=== PATIENT | female | born 1940 | race Hispanic/Latino ===

== ENCOUNTER 2017-12-13 23:09 | Emergency (ER) | payer MEDICARE ==
[~2017-12-13 23:09] MED LIST: ALPR0.5T8 PO; CARB25DR OP; CIPR-295 PO; DESI25TA16 PO; DILT120C57 PO; GENTEAL PM OIN3.5 GM OP; LISI-613 PO; MONT10TA24 PO; OMEP40CA37 PO
[2017-12-13 23:34] LABS: APPEARANCE,URINE Turbid (CLEAR); BILIRUBIN,URINE Negative (NEGATIVE); COLOR,URINE Yellow (YELLOW); GLUCOSE, URINE (UA) Negative (NEGATIVE); KETONES,URINE Negative (NEGATIVE); LEUKOCYTE ESTERASE ,URINE Large (NEGATIVE); NITRATE,URINE Positive (NEGATIVE); OCCULT BLOOD,URINE Large (NEGATIVE); PH,URINE 5.5 (5.0-8.0); PROTEIN,URINE 300 (NEGATIVE)
[2017-12-13] MEDS ORDERED: CEFTRIAXONE SODIUM 1 GM ONE (23:51)
[2017-12-13] MEDS ORDERED: PHENAZOPYRIDINE HCL 200 MG TABLET ONE (23:52)
[2017-12-13] MEDS ORDERED: SODIUM CHLORIDE 0.9% 50 ML IV ONE (23:52)
[2017-12-13 23:53] LABS: BASOPHILS % (AUTO) 0.5 % (0.0-5.0); EOSINOPHILS % (AUTO) 1.3 % (0.0-8.0); HEMATOCRIT 40.9 % (36-48); MEAN CORPUSCULAR HEMOGLOBIN 29.6 pg (27.0-33.0); MEAN CORPUSCULAR HGB CONC 33.1 g/dL (32.0-36.0); MEAN CORPUSCULAR VOLUME 89.6 fL (79-99); NEUTROPHILS % (AUTO) 70.2 % (40.0-77.0); PLATELET COUNT (AUTO) 191 K/uL (130-400); RED BLOOD CELL COUNT(AUTO) 4.57 MIL/uL (4.00-5.50); RED CELL DISTRIBUTION WIDTH 15.2 % (11.0-15.5); WHITE BLOOD COUNT (AUTO) 13.1 K/uL (4.8-10.8)
[2017-12-14 00:01] LABS: BACTERIA,URINE Many /HPF (None Seen); WBC,URINE TNTC /HPF (0-1)
[2017-12-14 00:45] LABS: CREATININE 0.8 mg/dL (0.5-1.5); POTASSIUM 3.9 mmol/L (3.5-5.1)
== END 2017-12-14 01:27 | disposition home or self-care (01) ==
LOC: EDH 23:09
DX: N30.00 Acute cystitis without hematuria (principal); I10 Essential (primary) hypertension; Z90.710 Acquired absence of both cervix and uterus; Z90.49 Acquired absence of other specified parts of digestive tract
CPT/HCPCS: 36415; 80048; 81001; 85025; 87088; 87186; 96374; 99284; J0696

== ENCOUNTER 2017-12-16 17:14 | Emergency (ER) | payer MEDICARE ==
[2017-12-16 18:25] LABS: BASOPHILS % (AUTO) 0.8 % (0.0-5.0); EOSINOPHILS % (AUTO) 1.7 % (0.0-8.0); HEMATOCRIT 36.1 % (36-48); LYMPHOCYTES % (AUTO) 18.9 % (21.0-51.0); MEAN CORPUSCULAR HEMOGLOBIN 30.5 pg (27.0-33.0); MEAN CORPUSCULAR VOLUME 89.7 fL (79-99); MONOCYTES % (AUTO) 11.9 % (3.0-13.0); NEUTROPHILS % (AUTO) 66.7 % (40.0-77.0); PLATELET COUNT (AUTO) 183 K/uL (130-400); RED BLOOD CELL COUNT(AUTO) 4.03 MIL/uL (4.00-5.50); RED CELL DISTRIBUTION WIDTH 14.9 % (11.0-15.5); WHITE BLOOD COUNT (AUTO) 9.4 K/uL (4.8-10.8)
[2017-12-16 18:26] LABS: APPEARANCE,URINE Cloudy (CLEAR); BILIRUBIN,URINE Negative (NEGATIVE); COLOR,URINE Dark Yellow (YELLOW); GLUCOSE, URINE (UA) Negative (NEGATIVE); KETONES,URINE Negative (NEGATIVE); LEUKOCYTE ESTERASE ,URINE Large (NEGATIVE); NITRATE,URINE Negative (NEGATIVE); OCCULT BLOOD,URINE Small (NEGATIVE); PROTEIN,URINE Negative (NEGATIVE)
[2017-12-16 18:33] LABS: CREATININE 0.7 mg/dL (0.5-1.5); POTASSIUM 3.7 mmol/L (3.5-5.1)
[2017-12-16 19:54] LABS: BACTERIA,URINE Few /HPF (None Seen); WBC,URINE 26-50 /HPF (0-1)
[2017-12-16 19:55] LABS: SQUAMOUS EPITHELIAL CELL,UR Few /HPF (0-2)
== END 2017-12-16 19:00 | disposition home or self-care (01) ==
LOC: EDH 17:14
DX: N39.0 Urinary tract infection, site not specified (principal); I10 Essential (primary) hypertension; F41.9 Anxiety disorder, unspecified
CPT/HCPCS: 36415; 80048; 81001; 85025; 87088; 87186

== ENCOUNTER → 2018-08-05 | Outpatient (CLI) | payer MEDICARE ==
[~2018-08-05] MED LIST changes: +AMLO5TAB9 PO; +BUDE10.2 IH; -CARB25DR OP; -CIPR-295 PO; +CITA-106 PO; +CLON0.1T PO; -DESI25TA16 PO; +DICY20TA11 PO; -DILT120C57 PO; -GENTEAL PM OIN3.5 GM OP; +IOHEXOL 350 MG/ML 100ML INFUS..BTL IV ONE; +METO25TA6 PO; -MONT10TA24 PO; -OMEP40CA37 PO
== END | disposition home or self-care (01) ==
LOC: RAH 09:02
PROVIDERS: ATTEND Internal Medicine Gastroenterology
DX: K57.90 Diverticulosis of intestine, part unspecified, without perforation or abscess without bleeding (principal); M41.86 Other forms of scoliosis, lumbar region; I70.90 Unspecified atherosclerosis; M47.815 Spondylosis without myelopathy or radiculopathy, thoracolumbar region; I51.7 Cardiomegaly
CPT/HCPCS: 74178; Q9967

== ENCOUNTER → 2018-11-12 | Outpatient (CLI) | payer MEDICARE ==
[~2018-11-12] VITALS: Ht 160 cm; Wt 73.5 kg
[~2018-11-12] MED LIST changes: -IOHEXOL 350 MG/ML 100ML INFUS..BTL IV ONE; +REGADENOSON 0.4 MG/5 ML PF SYG IVP SCH
== END | disposition home or self-care (01) ==
LOC: SHCH 08:05
PROVIDERS: ATTEND Internal Medicine Cardiovascular Disease
DX: I20.9 Angina pectoris, unspecified (principal)
CPT/HCPCS: 78452; 93017; 96374; A9500 ×2; J2785

== ENCOUNTER 2018-12-28 06:50 | Day surgery (SDC) | payer MEDICARE ==
[2018-12-24 11:45] VITALS: BP 135/60
[2018-12-24 12:11] LABS: BASOPHILS % (AUTO) 1.4 % (0.0-5.0); EOSINOPHILS % (AUTO) 3.1 % (0.0-8.0); HEMATOCRIT 41.8 % (36-48); LYMPHOCYTES % (AUTO) 32.2 % (21.0-51.0); MEAN CORPUSCULAR HEMOGLOBIN 31.2 pg (27.0-33.0); MEAN CORPUSCULAR HGB CONC 33.6 g/dL (32.0-36.0); MEAN CORPUSCULAR VOLUME 92.9 fL (79-99); MONOCYTES % (AUTO) 9.2 % (3.0-13.0); NEUTROPHILS % (AUTO) 54.1 % (40.0-77.0); PLATELET COUNT (AUTO) 166 K/uL (130-400); RED CELL DISTRIBUTION WIDTH 14.5 % (11.0-15.5); WHITE BLOOD COUNT (AUTO) 5.5 K/uL (4.8-10.8)
[2018-12-24 12:23] LABS: CREATININE 0.7 mg/dL (0.5-1.5); POTASSIUM 4.2 mmol/L (3.5-5.1)
[2018-12-24 12:26] LABS: INR 0.97 (0.85-1.15); PARTIAL THROMBOPLASTIN TIME 28.3 SEC (26.3-35.5); PROTHROMBIN TIME 10.2 SEC (9.6-11.6)
[2018-12-25 15:00] LABS: APPEARANCE,URINE Clear (CLEAR); BILIRUBIN,URINE Negative (NEGATIVE); COLOR,URINE Yellow (YELLOW); GLUCOSE, URINE (UA) Negative (NEGATIVE); KETONES,URINE Negative (NEGATIVE); LEUKOCYTE ESTERASE ,URINE Small (NEGATIVE); NITRATE,URINE Negative (NEGATIVE); OCCULT BLOOD,URINE Negative (NEGATIVE); PH,URINE 5.5 (5.0-8.0); PROTEIN,URINE Negative (NEGATIVE); UROBILINOGEN,URINE 0.2 mg/dL (0.2-1.0)
[2018-12-25 15:10] LABS: BACTERIA,URINE Few /HPF (None Seen); RBC,URINE 0-1 /HPF (0-1); SQUAMOUS EPITHELIAL CELL,UR Rare /HPF (0-2)
[2018-12-28] VITALS (13 sets, daily range): BP systolic 106–168; BP diastolic 50–75
[~2018-12-28] VITALS: Ht 157.5 cm; Wt 74.8 kg
[~2018-12-28 06:50] MED LIST changes: -BUDE10.2 IH; -CITA-106 PO; -DICY20TA11 PO; +DIPH1TAB PO; +FAMO40TA7 PO; +FLUT1BLS3 IH; +FURO20TA4 PO; +GENTEAL GEL OU; +GENTEAL TEARS OU; -LISI-613 PO; +LISI30TA4 PO; -METO25TA6 PO; +ONDA4TAB9 PO; -REGADENOSON 0.4 MG/5 ML PF SYG IVP SCH
[2018-12-28] MEDS ORDERED: SODIUM CHLORIDE 0.9% 1000ML 1,000 ML IV ONE (08:54)
[2018-12-28] MEDS ORDERED: IOHEXOL-350 50ML VIAL IV ONE (12:28)
[2018-12-28] MEDS ORDERED: NITROGLYCERIN 5 MG/ML 10 ML VIAL IV ONE (12:28)
[2018-12-28] MEDS ORDERED: IOHEXOL 350 MG/ML 100ML INFUS..BTL IV ONE (12:28)
[2018-12-28] MEDS ORDERED: LIDOCAINE HCL 2% 20ML ONE (12:28)
--- NOTE | 2018-12-28 13:20 | NUR ---
PATIENT TRANSFERRED PATIENT TAKEN TO HIDE PASTER VIA BED AND SON STAYED IN ROOM TO WAIT FOR PATIENT.
[2018-12-28] MEDS ORDERED: MIDAZOLAM HCL 1 MG/ML 2ML VIAL ONE (14:08)
[2018-12-28] MEDS ORDERED: SODIUM CHLORIDE 0.9% 1000ML 1,000 ML IV SCH (14:48)
[2018-12-28] MEDS ORDERED: HYDRALAZINE HCL 20 MG/ML VIAL ONE (15:08)
--- NOTE | 2018-12-28 17:00 | NUR ---
DIET PT TOLERATED DIET WELL, DAUGHTER ASSISTED PT.
--- NOTE | 2018-12-28 19:08 | NUR ---
DISCHARGE PT DISCHARGED VIA WHEELCHAIR WITH DAUGHTER. PT STABLE. NO COMPLAINTS MADE. CATH SITE TO RIGHT GROIN REMAINS SOFT, DRESSING DRY AND INTACT, NO OOZING NO HEMATOMA NOTED. DISCHARGE INSTRUCTIONS GIVEN TO DAUGHTER, ALSO DEMONSTRATED TO DAUGHTER ON HOW TO MONITOR CATH SITE FOR BLEEDING, HEMATOMA. VERBALIZED UNDERSTANDING. VOIDED PRIOR TO DISCHARGE.
== END 2018-12-28 19:08 | disposition home or self-care (01) ==
LOC: DAH 06:50
PROVIDERS: ATTEND Internal Medicine Cardiovascular Disease
DX: I25.118 Atherosclerotic heart disease of native coronary artery with other forms of angina pectoris (principal); I49.01 Ventricular fibrillation; I48.0 Paroxysmal atrial fibrillation; K21.9 Gastro-esophageal reflux disease without esophagitis; I10 Essential (primary) hypertension; E78.5 Hyperlipidemia, unspecified; J45.909 Unspecified asthma, uncomplicated; Z79.899 Other long term (current) drug therapy; Z79.01 Long term (current) use of anticoagulants; Z90.710 Acquired absence of both cervix and uterus; Z82.49 Family history of ischemic heart disease and other diseases of the circulatory system; Z82.3 Family history of stroke
CPT/HCPCS: 36415; 71045; 80048; 81001; 85025; 85610; 85730; 93005; 93458; A4606; C1760; C1894; J0360; J1644; J2250; J3490 ×2; J7030; Q9965 ×2; Q9967 ×2; 99156; 99157

== ENCOUNTER → 2019-08-18 | Outpatient (CLI) | payer MEDICARE ==
[~2019-08-18] MED LIST changes: +ONDA-104 PO; -ONDA4TAB9 PO
== END | disposition home or self-care (01) ==
LOC: RAH 10:16
PROVIDERS: ATTEND Internal Medicine
DX: Z12.31 Encounter for screening mammogram for malignant neoplasm of breast (principal)
CPT/HCPCS: 77067

== ENCOUNTER → 2020-08-31 | Outpatient (CLI) | payer MEDICARE ==
[~2020-08-31] MED LIST changes: +AMLO-257 PO; -AMLO5TAB9 PO
== END | disposition home or self-care (01) ==
LOC: RAH 15:05
PROVIDERS: ATTEND Internal Medicine
DX: G31.9 Degenerative disease of nervous system, unspecified (principal)
CPT/HCPCS: 70551

== ENCOUNTER → 2023-04-22 | Outpatient (CLI) | payer MEDICARE ==
[~2023-04-22] MED LIST changes: +ASPI-1197 PO; +CARB-38 PO; +CETI10TA57 PO; +DESI25TA16 PO; +DILT120T PO; +ESCI-8 PO; +IBUP-2076 PO; +MELA1TAB17 PO; +PANT40TA54 PO; +SPIR25TA6 PO
== END | disposition home or self-care (01) ==
LOC: RAH 12:31
PROVIDERS: ATTEND Internal Medicine
DX: M19.032 Primary osteoarthritis, left wrist (principal); M25.532 Pain in left wrist; G93.31 Postviral fatigue syndrome; J45.909 Unspecified asthma, uncomplicated; M47.815 Spondylosis without myelopathy or radiculopathy, thoracolumbar region; I25.10 Atherosclerotic heart disease of native coronary artery without angina pectoris; Z86.16 Personal history of COVID-19
CPT/HCPCS: 71046; 73100

== ENCOUNTER → 2024-12-02 | Outpatient (CLI) | payer MEDICARE, MEDICAID ==
[~2024-12-02] MED LIST changes: +DESI25TA PO; -DESI25TA16 PO
--- NOTE | 2024-12-02 12:19 | HMCIMG ---
US SOFT TISSUE NECK REASON: LOCALIZED ENLARGED LYMPH NODES. COMPARISON: None TECHNIQUE: Soft tissue left neck ultrasound study was performed. FINDINGS: At the region of interest, there is cervical lymph node measuring 8 x 4 x 7 mm. IMPRESSION: 1. Normal-appearing left cervical lymph node measuring 8 x 4 x 7 mm
== END | disposition home or self-care (01) ==
LOC: RAH 10:20
PROVIDERS: ATTEND Internal Medicine
DX: R59.0 Localized enlarged lymph nodes (principal)
CPT/HCPCS: 76536

== ENCOUNTER 2025-02-03 14:58 | Observation (INO) | payer MEDICARE, MEDICAID ==
[~2025-02-03] VITALS: Ht 157.5 cm; Wt 76.6 kg
[2025-02-03 16:14] LABS: IMMATURE GRANULOCYTE ABSOLUTE 0.08 K/uL (0-1); NUCLEATED RED BLOOD CELLS 0.0 % (0.0-0.19); PLATELET COUNT (AUTO) 229 K/uL (130-400); RED BLOOD CELL COUNT(AUTO) 4.66 MIL/uL (4.00-5.50); RED CELL DISTRIBUTION WIDTH 14.8 % (11.0-15.5); WHITE BLOOD COUNT (AUTO) 14.2 K/uL (4.8-10.8)
[2025-02-03 16:47] LABS: ASPARTATE AMINOTRANSFERASE 22.0 U/L (10-37); CREATINE KINASE, TOTAL 13.0 U/L (21-232); CREATININE 1.3 mg/dL (0.5-1.0); GLOMERULAR FILTR. RATE CALC 40.0 mL/min (>90); GLUCOSE,RANDOM 86.0 mg/dL (70-105); SODIUM SERUM 137.0 mmol/L (136-145); TOTAL PROTEIN, SERUM 6.3 g/dL (6.0-8.3); UREA NITROGEN, BLOOD 27.0 mg/dL (7-18)
--- NOTE | 2025-02-03 17:02 | HMCIMG ---
CT ABD/PEL WO CON RENAL/APPY REASON: abdominal pain COMPARISON: Prior CT from 07/18/2018 is available.. FINDINGS: Lung bases are clear. There are no focal liver lesions. There are normal-appearing kidneys.. Spleen and pancreas appear unremarkable. The gallbladder not visualized suggesting is surgically absent.. Bowel loops appear unremarkable. This includes normal appearance of the appendix there are scattered diverticulosis with no evidence of diverticulitis. There is no evidence of free fluid or intraperitoneal air. There are no focal fluid collections. There are demonstrate atherosclerotic changes with calcified plaque. The retroperitoneum appear normal as do pelvic soft tissue structures. The anterior abdominal wall is intact. Osseous structures demonstrate mild rotoscoliosis of the lumbar spine with multilevel osteoarthritic changes and disc disease.. There is grade 1 anterolisthesis of L5-S1. IMPRESSION: 1. No acute process seen in CT of abdomen and pelvis without intravenous contrast. 2. Unchanged from prior study with findings as discussed above. CT was performed with one or more following dose reduction techniques: automated exposure control, adjustment of the mA and kv according to patient's size, or use of a iterative reconstruction technique.
[2025-02-03] MEDS: 0.9%NACL 1000ML 1,000 ML IV SCH ×2 (17:45→19:25)
--- NOTE | 2025-02-03 18:23 | ERN ---
ED Note History of Present Illness Stated Complaint: ABDOMINAL PAIN Chief Complaint: Weakness Time Seen by MD: 15:09 Dictation: 84-year-old female presenting to the emergency department with generalized weakness and low blood pressure patient also having abdominal pain had recent change of medication. No chest pain or shortness of breath. Allergies: Coded Allergies: No Known Drug Allergies (Verified Allergy, 09/05/12) Home Meds Active Scripts Ondansetron HCl (Ondansetron HCl) 4 Mg Tablet, 4 MG PO TIDP PRN for VOMITING, #20 TAB Prov:KASSANDRA SINGH MD 02/07/23 Ibuprofen (Ibuprofen) 400 Mg Tablet, 400 MG PO TIDP, #30 TAB Prov:KASSANDRA SINGH MD 02/07/23 Reported Medications Melatonin/Pyridoxine HCl (B6) (Melatonin 5 mg Tablet) 1 Each Tablet, 1 EACH PO HS, TAB 02/07/23 Cetirizine HCl (Cetirizine HCl) 10 Mg Tablet, 10 MG PO BID, TAB 02/07/23 Diltiazem HCl (Diltiazem HCl) 120 Mg Tablet, 240 MG PO AM, TAB 02/07/23 Pantoprazole Sodium (Pantoprazole Sodium) 40 Mg Tablet.dr, 40 MG PO DAILY, TAB 02/07/23 Escitalopram Oxalate (Escitalopram Oxalate) 10 Mg Tablet, 10 MG PO DAILY, TAB 02/07/23 Aspirin (Aspirin) 81 Mg Tab.chew, 81 MG PO DAILY, TAB.CHEW 02/07/23 Spironolactone (Spironolactone) 25 Mg Tablet, 25 MG PO AM, TAB 02/07/23 Carbidopa/Levodopa (Carbidopa-Levo 25-100 mg Odt) 1 Each Tab.rapdis, 1 EACH PO QID, TAB 02/07/23 Famotidine (Famotidine) 40 Mg Tablet, 40 MG PO DAILY, TAB 02/07/23 Desipramine HCl (Desipramine HCl) 25 Mg Tablet, 25 MG PO HS, TAB 02/07/23 [Genteal Gel] No Conflict Check, 1 STRIP OU HSPRN 12/24/18 [Genteal Tears] No Conflict Check, 1 DROP OU BID 12/24/18 Fluticasone/Umeclidin/Vilanter (Trelegy Ellipta 100-62.5-25) 1 Each Blst.w.dev, 2 EACH IH AD for SOB 12/24/18 Famotidine (Famotidine) 40 Mg Tablet, 40 MG PO BID, TAB 12/24/18 Alprazolam (Alprazolam) 0.5 Mg Tablet, 0.5 MG PO AD PRN for ANXIETY, TAB 12/24/18 Ondansetron HCl (Ondansetron HCl) 4 Mg Tablet, 4 MG PO AHD PRN for NAUSEA, TAB 12/24/18 Diphenoxylate HCl/Atropine (Lomotil Tablet) 1 Each Tablet, 5 MG PO AD PRN for DIARRHEA, TAB 12/24/18 Lisinopril (Lisinopril) 30 Mg Tablet, 30 MG PO AM, TAB 12/24/18 Furosemide (Furosemide) 20 Mg Tablet, 20 MG PO AMNOON, TAB 12/24/18 Clonidine HCl (Clonidine HCl) 0.1 Mg Tablet, 0.1 MG PO FOUR TIMES PRN for SYTOLIC OVER 180, TAB 12/24/18 Amlodipine Besylate (Amlodipine Besylate) 5 Mg Tablet, 5 MG PO DAILY, TAB 01/29/18 Past Medical History Past Medical History: Hypertension Additional Past Medical Hx: PARKINSONS Surgical History: Unknown Social History: Lives with family Review of System Dictation Constitutional: Negative for fever,chills, and weight loss Eyes: Negative for injury, pain,redness, and discharge ENT: Negative for injury,pain or swelling Cardiovascular: Negative for chest pain, palpitations, and edema Respiratory: Negative for shortness of breath, cough, and wheezing, Abdomen/GI: Per HPI : Negative for injury, bleeding and discharge MS/Extremity: Negative for injury and deformity Skin: Negative for rash, and discoloration Neuro: Per HPI Initial Vital Sign VS Vital Signs Date Time Temp Pulse Resp B/P (MAP) Pulse Ox O2 Delivery O2 Flow Rate FiO2 02/03/25 15:01 98.2 50 20 107/56 95 Room Air Physical Exam Dictation General: awake, alert, appears ill and weak Head/Face: Normocephalic, atraumatic Eyes: PERRL, EOMI, vision at baseline ENT: oral cavity clear, TMs clear, no signs of infection Neck: Trachea midline, supple, no nuchal rigidity Cardiovascular: RRR, normal S1/S2, No MRGs, no JVD Respiratory: CTAB, no respiratory distress, No rales or wheezes Abdomen: Soft, non-tender, non-distended, normal bowel sounds, no guarding or rebound. Skin: Warm, dry, normal turgor, no rash MS/Extremity: Pulses equal, no cyanosis, neurovascular intact, FROM Neuro: COAx4, GCS 15, strength 5/5, CN 2-12 intact, normal cerebellar exam, normal gait, Psych: Normal behavior, mood, and affect normal Results (Laboratory/Radiology) Laboratory/Radiology Laboratory Tests Test 02/03/25 15:11 02/03/25 16:00 Whole Blood Glucose 85 MG/DL (70-110) White Blood Count 14.2 K/uL (4.8-10.8) H Red Blood Count 4.66 MIL/uL (4.00-5.50) Hemoglobin 14.2 g/dL (12.0-16.0) Hematocrit 42.9 % (36-48) Mean Corpuscular Volume 92.1 fL (79-99) Mean Corpuscular Hemoglobin 30.5 pg (27.0-33.0) Mean Corpuscular Hemoglobin Concent 33.1 g/dL (32.0-36.0) Red Cell Distribution Width 14.8 % (11.0-15.5) Platelet Count 229 K/uL (130-400) Mean Platelet Volume 11.4 fL (7.5-10.5) H Immature Granulocyte % (Auto) 0.6 % (0-1) Neutrophils (%) (Auto) 62.2 % (40.0-77.0) Lymphocytes (%) (Auto) 24.9 % (21.0-51.0) Monocytes (%) (Auto) 10.8 % (3.0-13.0) Eosinophils (%) (Auto) 0.7 % (0.0-8.0) Basophils (%) (Auto) 0.8 % (0.0-5.0) Neutrophils # (Auto) 8.9 K/uL (1.8-7.7) H Lymphocytes # (Auto) 3.6 K/uL (1.0-4.8) Monocytes # (Auto) 1.5 K/uL (0.1-1.0) H Eosinophils # (Auto) 0.10 K/uL (0.00-0.70) Basophils # (Auto) 0.11 K/uL (0.00-0.20) Absolute Immature Granulocyte (auto 0.08 K/uL (0-1) Nucleated Red Blood Cells 0.0 % (0.0-0.19) Sodium Level 137 mmol/L (136-145) Potassium Level 4.1 mmol/L (3.5-5.1) Chloride Level 99 mmol/L (101-111) L Carbon Dioxide Level 30 mmol/L (21-32) Blood Urea Nitrogen 27 mg/dL (7-18) H Creatinine 1.3 mg/dL (0.5-1.0) H Glomerular Filtration Rate Calc 40 mL/min (>90) Random Glucose 86 mg/dL (70-105) Lactic Acid Level 1.5 mmol/L (0.8-2.5) Total Calcium 8.5 mg/dL (8.5-10.1) Total Bilirubin 0.8 mg/dL (0.2-1.0) Direct Bilirubin 0.2 mg/dL (0.0-0.3) Aspartate Amino Transf (AST/SGOT) 22 U/L (10-37) Alanine Aminotransferase (ALT/SGPT) 14 U/L (12-78) Alkaline Phosphatase 118 U/L (50-136) Total Creatine Kinase 13 U/L (21-232) #L Troponin I High Sensitivity 8 ng/L (4-50) Total Protein 6.3 g/dL (6.0-8.3) Albumin 3.2 g/dL (3.5-5.0) L Lipase 32 U/L (16-77) Labs Reviewed?: Yes EKG: (+) NSR, (+) QRS, (+) nonspecific ST T wave chg, (+) nonspecific ST T wave chg ED Course ED Course Orders Procedure Category Date Status Time Bedside Glucose CPOE 02/03/25 Transmitted Fingerstick 15:06 12 Lead Ekg Tracing- EKG 02/03/25 Logged Technical 15:29 Basic Metabolic Panel LAB 02/03/25 Complete 15: Blood Cult YOLANDE 02/03/25 In Process 15:29 Cbc With Differential LAB 02/03/25 Complete 15:29 Hepatic Function Panel LAB 02/03/25 Complete 15:29 Creatine Kinase, Total LAB 02/03/25 Complete 15:29 Lactic Acid LAB 02/03/25 Complete 15:29 Lipase LAB 02/03/25 Complete 15:29 Urinalysis Profile LAB 02/03/25 Logged 15:29 Troponin I High LAB 02/03/25 Complete Sensitivity 15:29 Ct Abd/Pel Wo Con CT 02/03/25 Resulted Renal/Appy 15:29 Ondansetron 4mg Inj PHA 02/03/25 In Process (Zofran 4mg Inj) 16:00 0.9%Nacl 1000ml (Ns PHA 02/03/25 In Process 1000ml) 16:00 Current Medications Medications (Trade) Dose Ordered Sig/[place] Route PRN Reason Start Time Stop Time Status Last Admin Dose Admin Ondansetron HCl (zoFRAN 4MG INJ) 4 mg ONCE IVP 02/03/25 16:00 02/03/25 20:00 02/03/25 17:46 Sodium Chloride 1,000 ml @ 0 mls/hr ONCE IV 02/03/25 16:00 02/03/25 20:00 02/03/25 17:45 Vital Signs Date Time Temp Pulse Resp B/P (MAP) Pulse Ox O2 Delivery O2 Flow Rate FiO2 02/03/25 15:01 98.2 50 20 107/56 95 Room Air Medical Decision Making MDM MDM: Differential diagnosis: Rationale: Tests considered and ordered secondary to shared decision making include: labs, ECG and radiology Previous outside records reviewed: Old ER visits. Risk of complication and/or morbidity or mortality of patient management: None Medications-Per medication reconciliation Need for hospitalization: Patient does meet criteria for hospitalization. Need for emergency major/minor surgery: No There are no social concerns with this patient. Prescription drug management Prescriptions will include symptomatic care Patient's prior external medical records from other ER visits were reviewed by me as indicated. Prior testing and results from previous visits were reviewed. Prior tests were taken into account with medical decision making and resource utilization, independent historian/historians were used to obtain complete medical history. I independently interpreted the test that were performed, results were reviewed by me and considered findings on radiology if ordered. Medical management and examination interpretation discussions were had by me with other qualified healthcare professionals as indicated for the patient's care. 84-year-old female with generalized weakness and borderline hypotension improved with IV fluids admitting for further care and evaluation. DX & DISP Disposition: Inpatient Departure Impression: Primary Impression: Acute abdominal pain Additional Impression: Hypotension Condition: Stable Referrals: LUCILLE MCCAIN MD (PCP) APRIL UNGER MD Feb 03, 2025 18:23
[2025-02-03] MEDS ORDERED: ROSU10TA72 PO (21:08)
[2025-02-03] MEDS ORDERED: ESCI5TAB16 PO (21:08)
[2025-02-03] MEDS ORDERED: CELE-125 PO (21:08)
[2025-02-03 21:33] LABS: APPEARANCE,URINE CLEAR (CLEAR); GLUCOSE, URINE (UA) NEGATIVE (NEGATIVE); LEUKOCYTE ESTERASE ,URINE NEGATIVE Leu/uL (NEGATIVE); NITRATE,URINE NEGATIVE (NEGATIVE); OCCULT BLOOD,URINE NEGATIVE (NEGATIVE)
[2025-02-03 21:34] LABS: ADD UA MICROSCOPIC NO
--- NOTE | 2025-02-03 23:13 | HP ---
HISTORY AND PHYSICAL NOTE DATE OF CONSULTATION: 02/03/25 REASON FOR CONSULTATION: weakness HISTORY OF PRESENT ILLNESS: 84-year-old female presenting to the emergency department with generalized weakness and low blood pressure patient also having abdominal pain had recent change of medication. No chest pain or shortness of breath. Allergies: Coded Allergies: No Known Drug Allergies (Verified Allergy, 09/05/12) Home Meds Active Scripts Ondansetron HCl (Ondansetron HCl) 4 Mg Tablet, 4 MG PO TIDP PRN for VOMITING, #20 TAB Prov:KASSANDRA SINGH MD 02/07/23 Ibuprofen (Ibuprofen) 400 Mg Tablet, 400 MG PO TIDP, #30 TAB Prov:KASSANDRA SINGH MD 02/07/23 Reported Medications Melatonin/Pyridoxine HCl (B6) (Melatonin 5 mg Tablet) 1 Each Tablet, 1 EACH PO HS, TAB 02/07/23 Cetirizine HCl (Cetirizine HCl) 10 Mg Tablet, 10 MG PO BID, TAB 02/07/23 Diltiazem HCl (Diltiazem HCl) 120 Mg Tablet, 240 MG PO AM, TAB 02/07/23 Pantoprazole Sodium (Pantoprazole Sodium) 40 Mg Tablet.dr, 40 MG PO DAILY, TAB 02/07/23 Escitalopram Oxalate (Escitalopram Oxalate) 10 Mg Tablet, 10 MG PO DAILY, TAB 02/07/23 Aspirin (Aspirin) 81 Mg Tab.chew, 81 MG PO DAILY, TAB.CHEW 02/07/23 Spironolactone (Spironolactone) 25 Mg Tablet, 25 MG PO AM, TAB 02/07/23 Carbidopa/Levodopa (Carbidopa-Levo 25-100 mg Odt) 1 Each Tab.rapdis, 1 EACH PO QID, TAB 02/07/23 Famotidine (Famotidine) 40 Mg Tablet, 40 MG PO DAILY, TAB 02/07/23 Desipramine HCl (Desipramine HCl) 25 Mg Tablet, 25 MG PO HS, TAB 02/07/23 [Genteal Gel] No Conflict Check, 1 STRIP OU HSPRN 12/24/18 [Genteal Tears] No Conflict Check, 1 DROP OU BID 12/24/18 Fluticasone/Umeclidin/Vilanter (Trelegy Ellipta 100-62.5-25) 1 Each Blst.w.dev, 2 EACH IH AD for SOB 12/24/18 Famotidine (Famotidine) 40 Mg Tablet, 40 MG PO BID, TAB 12/24/18 Alprazolam (Alprazolam) 0.5 Mg Tablet, 0.5 MG PO AD PRN for ANXIETY, TAB 12/24/18 Ondansetron HCl (Ondansetron HCl) 4 Mg Tablet, 4 MG PO AHD PRN for NAUSEA, TAB 12/24/18 Diphenoxylate HCl/Atropine (Lomotil Tablet) 1 Each Tablet, 5 MG PO AD PRN for DIARRHEA, TAB 12/24/18 Lisinopril (Lisinopril) 30 Mg Tablet, 30 MG PO AM, TAB 12/24/18 Furosemide (Furosemide) 20 Mg Tablet, 20 MG PO AMNOON, TAB 12/24/18 Clonidine HCl (Clonidine HCl) 0.1 Mg Tablet, 0.1 MG PO FOUR TIMES PRN for SYTOLIC OVER 180, TAB 12/24/18 Amlodipine Besylate (Amlodipine Besylate) 5 Mg Tablet, 5 MG PO DAILY, TAB 01/29/18 Past Medical History Past Medical History: Hypertension Additional Past Medical Hx: PARKINSONS Surgical History: Unknown Social History: Lives with family Review of System Dictation Constitutional: Negative for fever,chills, and weight loss Eyes: Negative for injury, pain,redness, and discharge ENT: Negative for injury,pain or swelling Cardiovascular: Negative for chest pain, palpitations, and edema Respiratory: Negative for shortness of breath, cough, and wheezing, Abdomen/GI: Per HPI : Negative for injury, bleeding and discharge MS/Extremity: Negative for injury and deformity Skin: Negative for rash, and discoloration Neuro: Per HPI Initial Vital Sign VS Vital Signs Date Time Temp Pulse Resp B/P (MAP) Pulse Ox O2 Delivery O2 Flow Rate FiO2 02/03/25 15:01 98.2 50 20 107/56 95 Room Air ALLERGIES: Coded Allergies: No Known Drug Allergies (Verified Allergy, 09/05/12) HOME MEDS: Active Scripts Ondansetron HCl (Ondansetron HCl) 4 Mg Tablet, 4 MG PO TIDP PRN for VOMITING, #20 TAB Prov:KASSANDRA SINGH MD 02/07/23 Ibuprofen (Ibuprofen) 400 Mg Tablet, 400 MG PO TIDP, #30 TAB Prov:KASSANDRA SINGH MD 02/07/23 Reported Medications Escitalopram Oxalate (Escitalopram Oxalate) 5 Mg Tablet, 1 TAB PO HS for 30 Days, #30 TAB 0 Refills 02/03/25 Rosuvastatin Calcium (Rosuvastatin Calcium) 10 Mg Tablet, 1 TAB PO HS for 30 Days, #30 TAB 0 Refills 02/03/25 Celecoxib (Celecoxib) 200 Mg Capsule, 1 CAP PO DAILY for pain for 30 Days, #30 CAP 0 Refills 02/03/25 Melatonin/Pyridoxine HCl (B6) (Melatonin 5 mg Tablet) 1 Each Tablet, 1 EACH PO HS, TAB 02/07/23 Cetirizine HCl (Cetirizine HCl) 10 Mg Tablet, 10 MG PO BID, TAB 02/07/23 Diltiazem HCl (Diltiazem HCl) 120 Mg Tablet, 240 MG PO AM, TAB 02/07/23 Pantoprazole Sodium (Pantoprazole Sodium) 40 Mg Tablet.dr, 40 MG PO DAILY, TAB 02/07/23 Escitalopram Oxalate (Escitalopram Oxalate) 10 Mg Tablet, 10 MG PO DAILY, TAB 02/07/23 Aspirin (Aspirin) 81 Mg Tab.chew, 81 MG PO DAILY, TAB.CHEW 02/07/23 Spironolactone (Spironolactone) 25 Mg Tablet, 25 MG PO AM, TAB 02/07/23 Carbidopa/Levodopa (Carbidopa-Levo 25-100 mg Odt) 1 Each Tab.rapdis, 1 EACH PO QID, TAB 02/07/23 Famotidine (Famotidine) 40 Mg Tablet, 40 MG PO DAILY, TAB 02/07/23 Desipramine HCl (Desipramine HCl) 25 Mg Tablet, 25 MG PO HS, TAB 02/07/23 [Genteal Gel] No Conflict Check, 1 STRIP OU HSPRN 12/24/18 [Genteal Tears] No Conflict Check, 1 DROP OU BID 12/24/18 Fluticasone/Umeclidin/Vilanter (Trelegy Ellipta 100-62.5-25) 1 Each Blst.w.dev, 2 EACH IH AD for SOB 12/24/18 Famotidine (Famotidine) 40 Mg Tablet, 40 MG PO BID, TAB 12/24/18 Alprazolam (Alprazolam) 0.5 Mg Tablet, 0.5 MG PO AD PRN for ANXIETY, TAB 12/24/18 Ondansetron HCl (Ondansetron HCl) 4 Mg Tablet, 4 MG PO AHD PRN for NAUSEA, TAB 12/24/18 Diphenoxylate HCl/Atropine (Lomotil Tablet) 1 Each Tablet, 5 MG PO AD PRN for DIARRHEA, TAB 12/24/18 Lisinopril (Lisinopril) 30 Mg Tablet, 30 MG PO AM, TAB 12/24/18 Furosemide (Furosemide) 20 Mg Tablet, 20 MG PO AMNOON, TAB 12/24/18 Clonidine HCl (Clonidine HCl) 0.1 Mg Tablet, 0.1 MG PO FOUR TIMES PRN for SYTOLIC OVER 180, TAB 12/24/18 Amlodipine Besylate (Amlodipine Besylate) 5 Mg Tablet, 5 MG PO DAILY, TAB 01/29/18 INPATIENT MEDS: Current Medications Medications Dose Ordered Sig/[place] Start Time Stop Time Status Last Admin Ceftriaxone Sodium 1 gm Q24H 02/03/25 19:00 02/13/25 18:59 02/03/25 19:25 Sodium Chloride 1,000 ml @ 125 mls/hr Q8H 02/03/25 19:00 03/05/25 18:59 02/03/25 19:25 Heparin Sodium (Porcine) 5,000 unit Q12H 02/03/25 19:00 03/05/25 18:59 02/03/25 19:25 VITAL SIGNS Vital Signs Date Time Temp Pulse Resp B/P (MAP) Pulse Ox O2 Delivery O2 Flow Rate FiO2 02/03/25 19:53 98.4 62 18 145/66 98 Room Air* 0 02/03/25 19:18 98.1 58 16 153/71 96 Room Air* 0 02/03/25 15:01 98.2 50 20 107/56 95 Room Air PHYSICAL EXAM General: awake, alert, appears ill and weak Head/Face: Normocephalic, atraumatic Eyes: PERRL, EOMI, vision at baseline ENT: oral cavity clear, TMs clear, no signs of infection Neck: Trachea midline, supple, no nuchal rigidity Cardiovascular: RRR, normal S1/S2, No MRGs, no JVD Respiratory: CTAB, no respiratory distress, No rales or wheezes Abdomen: Soft, non-tender, non-distended, normal bowel sounds, no guarding or rebound. Skin: Warm, dry, normal turgor, no rash MS/Extremity: Pulses equal, no cyanosis, neurovascular intact, FROM Neuro: COAx4, GCS 15, strength 5/5, CN 2-12 intact, normal cerebellar exam, normal gait, Psych: Normal behavior, mood, and affect normal LABORATORY RESULTS Laboratory Tests 02/03/25 15:11: Whole Blood Glucose 85 02/03/25 16:00: White Blood Count 14.2, Red Blood Count 4.66, Hemoglobin 14.2, Hematocrit 42.9, Mean Corpuscular Volume 92.1, Mean Corpuscular Hemoglobin 30.5, Mean Corpuscular Hemoglobin Concent 33.1, Red Cell Distribution Width 14.8, Platelet Count 229, Mean Platelet Volume 11.4, Immature Granulocyte % (Auto) 0.6, Neutrophils (%) (Auto) 62.2, Lymphocytes (%) (Auto) 24.9, Monocytes (%) (Auto) 10.8, Eosinophils (%) (Auto) 0.7, Basophils (%) (Auto) 0.8, Neutrophils # (Auto) 8.9, Lymphocytes # (Auto) 3.6, Monocytes # (Auto) 1.5, Eosinophils # (Auto) 0.10, Basophils # (Auto) 0.11, Absolute Immature Granulocyte (auto 0.08, Nucleated Red Blood Cells 0.0, Sodium Level 137, Potassium Level 4.1, Chloride Level 99, Carbon Dioxide Level 30, Blood Urea Nitrogen 27, Creatinine 1.3, Glomerular Filtration Rate Calc 40, Random Glucose 86, Lactic Acid Level 1.5, Total Calcium 8.5, Total Bilirubin 0.8, Direct Bilirubin 0.2, Aspartate Amino Transf (AST/SGOT) 22, Alanine Aminotransferase (ALT/SGPT) 14, Alkaline Phosphatase 118, Total Creatine Kinase 13, Troponin I High Sensitivity 8, Total Protein 6.3, Albumin 3.2, Lipase 32 02/03/25 21:25: Urine Color COLORLESS, Urine Appearance CLEAR, Urine pH 5.5, Urine Specific [place] 1.004, Urine Protein NEGATIVE, Urine Glucose (UA) NEGATIVE, Urine Ketones NEGATIVE, Urine Occult Blood NEGATIVE, Urine Nitrate NEGATIVE, Urine Bilirubin NEGATIVE, Urine Urobilinogen 0.2, Urine Leukocyte Esterase NEGATIVE PROBLEM LIST: (1) Acute abdominal pain ICD Codes: R10.9 - Unspecified abdominal pain (2) Hypotension ICD Codes: I95.9 - Hypotension, unspecified (3) Dehydration ICD Codes: E86.0 - Dehydration PLAN hydrate and monitor LUCILLE MCCAIN MD Feb 03, 2025 23:13
[2025-02-04 01:10] VITALS: BP 116/83; PULSE 64; RESP 20; TEMP 96.6
[2025-02-04] MEDS ORDERED: ALPR2TAB7 PO (01:29)
[2025-02-04] MEDS ORDERED: D-ME118S56 PO (01:51)
[2025-02-04] MEDS ORDERED: [UNRECOGNIZED DRUG - OTHER] PO PRN (02:00)
[2025-02-04] MEDS ORDERED: BPM PO PRN (02:00)
[2025-02-04] MEDS ORDERED: P EPD HCL PO PRN (02:00)
[2025-02-04] MEDS ORDERED: D METHORPHAN HB PO PRN (02:00)
[2025-02-04 03:03] VITALS: BP 139/52; PULSE 62; RESP 18; TEMP 97.5
--- NOTE | 2025-02-04 06:35 | EKG ---
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
--- NOTE | 2025-02-04 06:47 | NUR ---
ROUND DR. MCCAIN AT BEDSIDE. PER DR. MCCAIN TO DISCHARGE PT AFTER BREAKFAST AND CONTINUE ALL HOME MEDICATIONS. NO FURTHER ORDERS AT THIS TIME.
[2025-02-04 07:55] VITALS: O2SAT 95
[2025-02-04 08:00] VITALS: BP 122/45; PULSE 59; RESP 17; TEMP 97.8
[2025-02-04] MEDS: SPIRONOLACTONE 25 MG TAB PO SCH (08:09)
--- NOTE | 2025-02-04 08:09 | NUR ---
BP MED ALDACTONE NOT GIVEN AT THIS TIME. BP: 122/45. PER ORDER FROM AKLYN WIGGINS TO NOT GIVE IF SYSTOLIC IS LESS THAN 140mm/Hg. Addendum: 02/04/25 at 0819 by LIZBETH GUERRA, LOAN APPROVER LOAN APPROVER cardizem not given at this time. bp 122/45
[2025-02-04] MEDS: CARBIDOPA LEVO PO SCH (08:11)
[2025-02-04] MEDS: ASPIRIN 81MG CHEW TAB PO SCH (08:18)
--- NOTE | 2025-02-04 08:40 | NUR ---
DISCHARGE DC'D IV. NO COMPLICATIONS. AWARE TO FOLLOW UP WITH DR. MCCAIN WITHIN 2-3 DAYS. ANSWERED ALL QUESTIONS. DAUGHTER [place] [phone] AWARE THAT PT HAS BEEN DISCHARGED. ANSWERED QUESTIONS. PT DENIES PAIN AT THIS TIME. PT WAITING FOR FAMILY TO PICK PT.
[2025-02-04] MEDS ORDERED: NON-FORMULARY MEDICATION 1 EACH (Famotidine 40 MG) PO SCH (09:00)
--- NOTE | 2025-02-04 20:04 | DS ---
Discharge Summary DIAGNOSE(S): [Vasovagal reaction from constipation] HOSPITAL COURSE SUMMARY: [Patient presented with low blood pressure with abdominal pain after bowel movement all her symptoms resolved and she is being discharged as she is tolerating her diet well and she is at her baseline] ANIMAL CARE TAKER(S): [] PROCEDURE(S)/TREATMENT(S): [] PROBLEM(S): [] FOLLOW-UP TEST(S): [None] DISCHARGE INSTRUCTIONS: [Follow up with PCP in 1-2 days] Home Meds Reported Medications D-Methorphan Hb/P-Epd HCl/Bpm (Vusjkndpmi-Mxnetkdzgdt-Ut Syr) 2 Mg-30 Mg-10 Mg/5 Ml Syrup, 10 ML PO QID PRN for COUGH 02/04/25 Alprazolam (Alprazolam) 2 Mg Tablet, 1 TAB PO BID PRN for ANXIETY/AGITATION 02/04/25 Escitalopram Oxalate (Escitalopram Oxalate) 5 Mg Tablet, 1 TAB PO HS for 30 Da ys, #30 TAB 0 Refills 02/03/25 Rosuvastatin Calcium (Rosuvastatin Calcium) 10 Mg Tablet, 1 TAB PO HS for 30 Days, #30 TAB 0 Refills 02/03/25 Celecoxib (Celecoxib) 200 Mg Capsule, 1 CAP PO DAILY for pain for 30 Days, #30 CAP 0 Refills 02/03/25 Melatonin/Pyridoxine HCl (B6) (Melatonin 5 mg Tablet) 1 Each Tablet, 1 EACH PO HS, TAB 02/07/23 Cetirizine HCl (Cetirizine HCl) 10 Mg Tablet, 10 MG PO BID, TAB 02/07/23 Diltiazem HCl (Diltiazem HCl) 120 Mg Tablet, 240 MG PO AM, TAB 02/07/23 Pantoprazole Sodium (Pantoprazole Sodium) 40 Mg Tablet.dr, 40 MG PO DAILY, TAB 02/07/23 Aspirin (Aspirin) 81 Mg Tab.chew, 81 MG PO DAILY, TAB.CHEW 02/07/23 Spironolactone (Spironolactone) 25 Mg Tablet, 25 MG PO AM, TAB 02/07/23 Carbidopa/Levodopa (Carbidopa-Levo 25-100 mg Odt) 1 Each Tab.rapdis, 1 EACH PO QID, TAB 02/07/23 Desipramine HCl (Desipramine HCl) 25 Mg Tablet, 25 MG PO HS, TAB 02/07/23 Famotidine (Famotidine) 40 Mg Tablet, 40 MG PO BID, TAB 12/24/18 Discontinued Reported Medications Escitalopram Oxalate (Escitalopram Oxalate) 10 Mg Tablet, 10 MG PO DAILY, TAB 02/07/23 Famotidine (Famotidine) 40 Mg Tablet, 40 MG PO DAILY, TAB 02/07/23 [Genteal Gel] No Conflict Check, 1 STRIP OU HSPRN 12/24/18 [Genteal Tears] No Conflict Check, 1 DROP OU BID 12/24/18 Fluticasone/Umeclidin/Vilanter (Trelegy Ellipta 100-62.5-25) 1 Each Blst.w.dev, 2 EACH IH AD for SOB 12/24/18 Alprazolam (Alprazolam) 0.5 Mg Tablet, 0.5 MG PO AD PRN for ANXIETY, TAB 12/24/18 Ondansetron HCl (Ondansetron HCl) 4 Mg Tablet, 4 MG PO AHD PRN for NAUSEA, TAB 12/24/18 Diphenoxylate HCl/Atropine (Lomotil Tablet) 1 Each Tablet, 5 MG PO AD PRN for DIARRHEA, TAB 12/24/18 Lisinopril (Lisinopril) 30 Mg Tablet, 30 MG PO AM, TAB 12/24/18 Furosemide (Furosemide) 20 Mg Tablet, 20 MG PO AMNOON, TAB 12/24/18 Clonidine HCl (Clonidine HCl) 0.1 Mg Tablet, 0.1 MG PO FOUR TIMES PRN for SYTOLIC OVER 180, TAB 12/24/18 Amlodipine Besylate (Amlodipine Besylate) 5 Mg Tablet, 5 MG PO DAILY, TAB 01/29/18 Discontinued Scripts Ondansetron HCl (Ondansetron HCl) 4 Mg Tablet, 4 MG PO TIDP PRN for VOMITING, #20 TAB Prov:KASSANDRA SINGH MD 02/07/23 Ibuprofen (Ibuprofen) 400 Mg Tablet, 400 MG PO TIDP, #30 TAB Prov:KASSANDRA SINGH MD 02/07/23 LUCILLE MCCAIN MD Feb 04, 2025 20:04
[2025-02-04] MEDS ORDERED: AMITRIPTYLINE 25 MG TABLET PO SCH (21:00)
[2025-02-04] MEDS ORDERED: PYRIDOXINE HCL PO SCH (21:00)
[2025-02-04] MEDS ORDERED: MELATONIN PO SCH (21:00)
== END 2025-02-04 09:55 | disposition home or self-care (01) ==
LOC: EDH 14:58 → EDHIP 18:44 → 3DH 02-04 01:05
PROVIDERS: ADMIT Internal Medicine; ATTEND Internal Medicine
DX: R10.30 Lower abdominal pain, unspecified (principal); I95.9 Hypotension, unspecified; I10 Essential (primary) hypertension; R53.1 Weakness; G20.A1 Parkinson's disease without dyskinesia, without mention of fluctuations; E86.0 Dehydration; K59.00 Constipation, unspecified; Z79.899 Other long term (current) drug therapy; Z98.890 Other specified postprocedural states
CPT/HCPCS: 96376; 96372 ×2; 96361 ×2; 96365; 96375; 99285; 82550; 80076; 84484; 80048; 83690; 85025; 87040 ×2; 82948; 83605; 81003; 36415; 74176; 93005; G0378 ×15; J7030 ×2; J0696; J2405 ×2; J1644 ×2